=== PATIENT | male | born 1975 | race Caucasian/White ===

== ENCOUNTER 2018-04-13 09:52 | Emergency (ER) | payer SELFPAY ==
[2018-04-13] MEDS ORDERED: methylPREDNISolone SS 40 mg Vial IVP STA (10:58)
[2018-04-13 11:04] LABS: HEMATOCRIT 39.7 % (41.0-60); HEMOGLOBIN 13.3 gm/dL (12-16); MEAN CELL VOLUME 92.3 fl (80-99); MEAN CORPUSCULAR HEMOGLOBIN 30.8 pg (26.0-30.0); MEAN CORPUSCULAR HGB CONC 33.4 pg (28.0-36.0); MEAN PLATELET VOLUME 7.3 fl; PLATELET COUNT 347 Th/cmm (150-400); RED CELL DISTRIBUTION WIDTH 12.8 % (11.5-20.0); WHITE BLOOD COUNT 9.7 Th/cmm (4.8-10.8)
[2018-04-13 11:22] LABS: ALB/GLOB RATIO 1.4 (1.0-1.8); ALBUMIN 4.4 gm/dL (4.2-5.5); ALKALINE PHOSPHATASE 71 U/L (34-104); ANION GAP 12.2 (7.0-16.0); BILIRUBIN,TOTAL 0.5 mg/dL (0.3-1.0); BUN - UREA NITROGEN 8 mg/dL (7-25); CALCIUM SERUM 9.8 mg/dL (8.6-10.3); CARBON DIOXIDE 26.4 mEq/L (21.0-31.0); CHLORIDE 102 mEq/L (98-107); CREATININE - SERUM 0.7 mg/dL (0.7-1.3); GFR AFRICAN-AMERICAN > 60.0 ml/min (>90); GFR NON AFRICAN-AMERICAN > 60.0 ml/min; GLUCOSE 97 mg/dL (70-105); POTASSIUM SERUM 4.6 mEq/L (3.5-5.1); SGOT 15 U/L (13-39); SGPT/ALT 14 U/L (7-52); SODIUM SERUM 136 mEq/L (136-145); TOTAL PROTEIN,SERUM 7.5 gm/dL (6.0-8.3)
[2018-04-13 11:33] LABS: BAND NEUTROPHILE 2 % (0-10); BASOPHIL 0 % (0-3); EOSINOPHIL 0 % (0-5); LYMPHOCYTE 8 % (20-50); MONOCYTE 3 % (2-10); NEUTROPHILS 87 % (40-80)
[2018-04-13] MEDS ORDERED: Bacitracin pkt 1 gm Pkt TP ONE (11:58)
[2018-04-13 12:01] LABS: ESR SEDIMENTATION SED RATE 23 mm/hr (0-20)
--- NOTE | 2018-04-13 12:10 | Diagnostic Imaging Report ---
Right thumb (3 views) HISTORY: Pain, question foreign body No radiopaque foreign bodies are seen. No focal bony lesions. No fractures. Joint spaces appear normal. IMPRESSION: Negative examination. No radiopaque foreign bodies identified.
--- NOTE | 2018-05-12 12:53 | ER Physician Documentation ---
DATE OF SERVICE: 04/13/2018 ER EVALUATION NOTE A#: [id number] HISTORY OF PRESENT ILLNESS: This is a 43-year-old male who says that he has had a spider bite to his right thumb on and off for last week and has sought medical evaluation in our ER. PAST MEDICAL HISTORY: Unremarkable. PHYSICAL EXAMINATION: GENERAL: The patient is a well-developed, well-nourished male, otherwise in no distress. EXTREMITIES: His right thumb is hugely swollen, red and hot and tender to touch. It is not majorly hot, just a little bit warm. There is no lymphangitis present. No evidence of tenosynovitis present. No crepitance present. No axillary lymphadenopathy present. He does have full flexion and extension present, which is limited by swelling. EMERGENCY DEPARTMENT COURSE: A CBC and CMP were drawn and were normal. I wrote for IV Solu-Medrol 62.5 mg IV for premedication before giving him vancomycin 1 gram IV. He had 2 blood cultures drawn. ASSESSMENT AND PLAN: Right thumb cellulitis with need for a hand surgeon followup. The patient was advised to follow up with [facility] [place] where hand surgeons are present. He does not need to go there today. The patient said he wanted to seek medical attention of a hand surgeon today, so he decided to go and seek that medical attention. He was also written for prescriptions, specifically for Bactrim double strength 1 p.o. b.i.d. as well as doxycycline 100 mg 1 p.o. b.i.d. [facility]# [id number]
== END 2018-04-13 14:15 | disposition home or self-care (01) ==
LOC: ER 09:52
DX: S60.361A Insect bite (nonvenomous) of right thumb, initial encounter (principal); W57.XXXA Bitten or stung by nonvenomous insect and other nonvenomous arthropods, initial encounter; Y93.89 Activity, other specified; Y92.89 Other specified places as the place of occurrence of the external cause; Y99.8 Other external cause status
CPT/HCPCS: 99285; 96365; 96366; 96375; 73140; 36415; 85007 ×2; 85025; 85652; 80053; 87040 ×2; J3370 ×2; J2930